=== PATIENT | female | born 1990 ===

== ENCOUNTER 2017-09-02 23:20 | Inpatient (IN) | payer MEDICAID ==
[2017-09-03 00:21] VITALS: BMI 34.2
[2017-09-03] MEDS ORDERED: Sodium Chloride 0.9% 1,000 ML IV SCH (00:30)
[2017-09-03] MEDS ORDERED: ceFAZolin 2 GM in Sodium Chloride 0.9% 100 ML IVPB ONE (00:39)
[2017-09-03] MEDS ORDERED: Oxytocin 30 units/LR 500ML 30 UNITS/500 ML BAG IV SCH (00:45)
[2017-09-03] MEDS ORDERED: Lactated Ringer's 1,000 ML IV SCH (00:45)
[2017-09-03] MEDS ORDERED: ePHEDrine 50 mg/ml Inj ONE (00:54)
[2017-09-03] MEDS ORDERED: Morphine 1 mg/ml preservative-free Inj(Duramorph) ONE (00:55)
[2017-09-03 01:29] LABS: BASO % 0.4 % (0.0-2.0); EOS # 0.1 K/uL (0.0-0.7); EOS % 0.6 % (0.0-4.0); HEMOGLOBIN 10.6 g/dL (12.0-16.0); LYMPH # 1.3 K/uL (1.0-4.3); LYMPH % 11.1 % (20.0-40.0); MEAN CELL VOLUME 82.7 fl (81.0-99.0); MEAN CORPUSCULAR HEMOGLOBIN 27.1 pg (27.0-31.0); MEAN CORPUSCULAR HGB CONC 32.7 g/dL (33.0-37.0); MEAN PLATELET VOLUME 9.2 fl (7.2-11.7); MONO # 0.6 K/uL (0.0-0.8); MONO % 5.4 % (0.0-10.0); NEUT # 9.5 K/uL (1.8-7.0); NEUT % 82.5 % (50.0-75.0); RBC 3.91 Mil/uL (3.80-5.20); RED CELL DISTRIBUTION WIDTH 13.4 % (11.5-14.5); WHITE BLOOD COUNT 11.5 K/uL (4.8-10.8)
[2017-09-03] MEDS ORDERED: Succinylcholine 200 mg/10 ml Inj IV ONE (01:43)
[2017-09-03] MEDS ORDERED: Propofol 10 mg/ml Inj (20 ML) ONE ×2 (01:43→01:58)
[2017-09-03 02:00] LABS: SQUAMOUS EPITHIAL 7 /hpf (0-5); URINE BACTERIA RARE (<OCC); URINE BILIRUBIN NEGATIVE (NEGATIVE); URINE BLOOD NEGATIVE (NEGATIVE); URINE CLARITY CLOUDY (Clear); URINE COLOR AMBER (YELLOW); URINE GLUCOSE (UA) NEG (Normal); URINE HYALINE CAST 0-2 /hpf (0-2); URINE LEUKOCYTE ESTERASE MOD Leu/uL (Negative); URINE PROTEIN 100 mg/dL (NEGATIVE)
[2017-09-03] MEDS ORDERED: Oxycodone/Acetaminophen 5/325 mg Tab PO PRN (02:33)
[2017-09-03] MEDS ORDERED: DiphenhydrAMINE 50 mg/ml Inj IVP PRN (02:43)
[2017-09-03 03:28] LABS: BARBITURATES, UR NEGATIVE (NEGATIVE)
[2017-09-03 03:42] LABS: BENZODIAZEPINES, UR NEGATIVE (NEGATIVE); OPIATES, UR NEGATIVE (NEGATIVE); PHENCYCLIDINE, UR NEGATIVE (NEGATIVE)
[2017-09-03 03:46] VITALS: TEMP 98.1
[2017-09-03] MEDS: Promethazine DM 6.25 mg-15 mg/5 ml Syrup PO PRN ×2 (04:33→21:08)
--- NOTE | 2017-09-03 08:55 | CP.PCM.CON ---
History of Present Illness - History of Present Illness History of Present Illness: Psychiatry consult note CC: "I'm feeling fine." HPI: 27 yo female s/p today, w/ a self reported history of "manic depression" and "paranoid schizophrenia", currently denies acute psychiatric complaints. Denies depression/anxiety/ paranoia/delusions/AH/VH/SI/HI/ albert/ pressured speech/racing thoughts. She denies current treatment w/ psychiatric medications. She states that prior to being she was taking Seroquel, Rock and Remeron; but stopped due to becoming . She denies having any acute psychiatric issues during this current . She denies ideation to harm self, others or her children. PPHx: H/o >10 psychiatric hospitalizations when she was a teenager, no recent hospitalizations. No current outpatient psychiatrist or medications. H/o suicide attempt at age 15. PMHx: No acute medical issues ALL: NKDA SHx: Lives w/ significant other and now two newborns; has two other children who live with their biological father; denies drugs/etoh; +intermittent cig use MSE: A + O x 3, calm, cooperative, mood/affect- neutral, speech normal, good eye contact, psychomotor normal, no AH/VH/SI/HI, I/J good, impulse control good Impression: 27 yo female w/ h/o bipolar disorder vs schizoaffective disorder, does not have any acute psychiatric symptoms at this time. -Patient is psychiatrically stable for discharge -Recommend outpatient psychiatric follow-up and monitoring upon discharge Past Patient History - Infectious Disease Hx of Infectious Diseases: None - Past Social History Smoking Status: Light Smoker < 10 Cigarettes Daily - CARDIAC Hx Cardiac Disorders: Yes Other/Comment: Patient reports she has three holes in her heart. - PULMONARY Hx Respiratory Disorders: No - NEUROLOGICAL Hx Neurological Disorder: No - HEENT Hx HEENT Problems: No - RENAL Hx Chronic Kidney Disease: No - ENDOCRINE/METABOLIC Hx Endocrine Disorders: No - HEMATOLOGICAL/ONCOLOGICAL Hx Blood Disorders: No - INTEGUMENTARY Hx Dermatological Problems: No - MUSCULOSKELETAL/RHEUMATOLOGICAL Hx Musculoskeletal Disorders: No - GASTROINTESTINAL Hx Gastrointestinal Disorders: No - GENITOURINARY/GYNECOLOGICAL Hx Genitourinary Disorders: No - PSYCHIATRIC Hx Psychophysiologic Disorder: No Hx Substance Use: No - SURGICAL HISTORY Hx Surgeries: No - ANESTHESIA Hx Anesthesia: No Meds Allergies/Adverse Reactions: Allergies Allergy/AdvReac Type Severity Reaction Status Date / Time No Known Allergies Allergy Verified 09/02/17 21:06 - Medications Medications: Current Medications Amoxicillin/Clavulanate Potassium (Augmentin 500 Mg-125 Mg Tab) 1 tab PO Q12 DIANE PRN Reason: Protocol Stop: 09/07/17 23:59 Diphenhydramine HCl (Benadryl) 50 mg IVP Q6 PRN PRN Reason: Itching / Pruritus Last Admin: 09/03/17 05:56 Dose: 50 mg Docusate Sodium (Colace) 100 mg PO BID [facility] Oxytocin (Pitocin 20 Units In Lr) 1,000 mls @ 125 mls/hr IV .Q8H [facility] Last Admin: 09/03/17 02:45 Dose: 125 mls/hr Oxytocin (Oxytocin 30 Units/Lr 500ml) 30 units in 500 mls @ 999 mls/hr IV .Q31M [facility] Last Admin: 09/03/17 01:54 Dose: 999 mls/hr Ibuprofen (Motrin Tab) 600 mg PO Q4H PRN PRN Reason: Pain, Mild (1-3) Ketorolac Tromethamine (Toradol) 30 mg IVP Q6 PRN PRN Reason: Pain, moderate (4-7) Last Admin: 09/03/17 04:28 Dose: 30 mg Ondansetron HCl (Zofran Inj) 4 mg IVP Q6 PRN PRN Reason: Nausea/Vomiting Oxycodone/Acetaminophen (Percocet 5/325 Mg Tab) 1 tab PO Q4 PRN PRN Reason: Pain, moderate (4-7) Stop: 09/06/17 02:34 Oxycodone/Acetaminophen (Percocet 5/325 Mg Tab) 2 tab PO Q4 PRN PRN Reason: Pain, severe (8-10) Stop: 09/06/17 02:34 Promethazine HCl/Dextromethorphan (Phenergan Dm Syrup) 5 ml PO Q6 PRN PRN Reason: Cough Last Admin: 09/03/17 04:33 Dose: 5 ml Sennosides (Senokot Tab) 17.2 mg PO [facility] Results - Vital Signs Recent Vital Signs: Last Vital Signs Temp 98.1 F 09/03/17 03:45 Pulse 110 H 09/03/17 03:45 Resp 18 09/03/17 03:45 BP 109/64 09/03/17 03:45 Pulse Ox - Labs Result Diagrams: 09/03/17 00:22 Labs: Laboratory Results - last 24 hr 09/03/17 09/03/17 09/03/17 00:22 00:22 00:22 WBC 11.5 H RBC 3.91 Hgb 10.6 L Hct 32.3 L MCV 82.7 MCH 27.1 MCHC 32.7 L RDW 13.4 Plt Count 196 MPV 9.2 Neut % (Auto) 82.5 H Lymph % (Auto) 11.1 L [place] % (Auto) 5.4 Eos % (Auto) 0.6 Baso % (Auto) 0.4 Neut # (Auto) 9.5 H Lymph # (Auto) 1.3 [place] # (Auto) 0.6 Eos # (Auto) 0.1 Baso # (Auto) 0.0 Urine Color Urine Clarity Urine pH Ur Specific [place] Urine Protein Urine Glucose (UA) Urine Ketones Urine Blood Urine Nitrate Urine Bilirubin Urine Urobilinogen Ur Leukocyte Esterase Urine RBC (Auto) Urine Microscopic WBC Ur Squamous Epith Cells Urine Bacteria Hyaline Casts Urine Opiates Screen Urine Methadone Screen Ur Barbiturates Screen Ur Phencyclidine Scrn Ur Amphetamines Screen U Benzodiazepines Scrn U Oth Cocaine Metabols U Cannabinoids Screen HIV-1 Ab Rapid Screen Non reactive Blood Type O POSITIVE Antibody Screen Negative BBK History Checked No verified bt 09/03/17 09/03/17 00:23 03:00 WBC RBC Hgb Hct MCV MCH MCHC RDW Plt Count MPV Neut % (Auto) Lymph % (Auto) [place] % (Auto) Eos % (Auto) Baso % (Auto) Neut # (Auto) Lymph # (Auto) [place] # (Auto) Eos # (Auto) Baso # (Auto) Urine Color [place] Urine Clarity Cloudy Urine pH 6.0 Ur Specific [place] 1.024 Urine Protein 100 Urine Glucose (UA) Neg Urine Ketones 80 Urine Blood Negative Urine Nitrate Negative Urine Bilirubin Negative Urine Urobilinogen 4.0 H Ur Leukocyte Esterase Mod Urine RBC (Auto) 4 H Urine Microscopic WBC 44 H Ur Squamous Epith Cells 7 H Urine Bacteria Rare Hyaline Casts 0-2 Urine Opiates Screen Negative Urine Methadone Screen Negative Ur Barbiturates Screen Negative Ur Phencyclidine Scrn Negative Ur Amphetamines Screen Negative U Benzodiazepines Scrn Negative U Oth Cocaine Metabols Negative U Cannabinoids Screen Positive H HIV-1 Ab Rapid Screen Blood Type Antibody Screen BBK History Checked
[2017-09-03] MEDS ORDERED: Albuterol-Ipratrop 3 mg / 0.5 (3 ml) UD INH STA ×2 (10:02→12:34)
[2017-09-03] MEDS: Amoxicillin-Clav 500-125 mg Tab PO SCH ×2 (10:03→21:09)
[2017-09-03 11:48] LABS: HEMOGLOBIN 8.2 g/dL (12.0-16.0); MEAN CELL VOLUME 83.3 fl (81.0-99.0); MEAN CORPUSCULAR HEMOGLOBIN 27.4 pg (27.0-31.0); MEAN CORPUSCULAR HGB CONC 32.9 g/dL (33.0-37.0); RBC 2.98 Mil/uL (3.80-5.20); RED CELL DISTRIBUTION WIDTH 13.5 % (11.5-14.5); WHITE BLOOD COUNT 10.5 K/uL (4.8-10.8)
--- NOTE | 2017-09-03 14:31 | RAD ---
HISTORY: SOB, cough COMPARISON: No prior. FINDINGS: LUNGS: No active pulmonary disease. PLEURA: No significant pleural effusion identified, no pneumothorax apparent. CARDIOVASCULAR: Normal. OSSEOUS STRUCTURES: No significant abnormalities. VISUALIZED UPPER ABDOMEN: Normal. OTHER FINDINGS: None. IMPRESSION: No active disease.
--- NOTE | 2017-09-03 15:15 | OBDS ---
DELIVERY PERSONNEL Delivery Doctor: Fitz Ohara MD Military Communications Specialist: Bert Mcgregor Anesthesiologist: Analisa Resident: I.MD eNry MATERNAL INFORMATION Delivery Anesthesia: Spinal; General Estimated Blood Loss (ml): 800 Placenta Cultured: No Maternal Complications: None RN Comments: Pt positive for Marijuana use on admission. Pt had spinal done but once pt was assisted to lie down she started having anxiety and kept asking to sit up. Dr. Ohara then explained to pt the need for general anesthesia. dr. Hauser then placed pt on general anesthesia. Provider Comments: see Operative report LABOR SUMMARY EDC: 10/05/2017 00:00 No. Babies in Womb: 2 Attempted: No Labor Anesthesia: None LABOR INFORMATION Reason for Induction: Not Applicable Onset of Labor: 09/02/2017 21:00 Oxytocin: N/A Group B Beta Strep: Not Done Steroids Given: None Reason Steroids Not Administered: Not Applicable MEMBRANES Membranes Rupture Method: Spontaneous Rupture of Membranes: 09/03/2017 01:52 Length of Rupture (hrs): 0.00 Amniotic Fluid Color: Clear Amniotic Fluid Amount: Moderate STAGES OF LABOR Stage 3 hrs: 0 Stage 3 min: 2 Total Time in Labor hrs: 4 Total Time in Labor min: 54 CSECTION DELIVERY Primary Indication: Multiple Gestation CSection Urgency: Elective CSection Incidence: Primary Labor: Labor Elective: Elective CSection Incision: Lower Uterine Transverse BABY A INFORMATION Delivery Date/Time: 09/03/2017 01:52 Method of Delivery: Born in Route : No : N/A Forceps: N/A Vacuum Extraction: N/A Shoulder Dystocia : No SHOULDER DYSTOCIA BABY A Infant Delivery Date/Time: 09/03/2017 01:52 PRESENTATION/POSITION BABY A Presentation: Cephalic Cephalic Presentation: Vertex Breech Presentation: N/A PLACENTA INFORMATION BABY A Placenta Delivery Time : 09/03/2017 01:54 Placenta Method of Delivery: Spontaneous Placenta Status: Delivered SCORES BABY A Heart Rate 1 min: >100 bpm Resp Effort 1 min: Good Cry Reflex Irritability 1 min: Grimace Muscle Tone 1 min: Some Flexion of Extremities Color 1 min: Body Phenix, Extremities Blue Resuscitation Effort 1 min: Tactile Stimulation; Oxygen SCORE 1 MIN: 7 Heart Rate 5 min: >100 bpm Resp Effort 5 min: Good Cry Reflex Irritability 5 min: Cough or Sneeze or Pulls Away Muscle Tone 5 min: Active Motion Color 5 min: Body Phenix, Extremities Blue Resuscitation Effort 5 min: Oxygen SCORE 5 MIN: 9 INFANT INFORMATION BABY A Gestational Age at Delivery: 36.0 Gestational Status: Term Outcome : Liveborn Condition : Stable Sex: Female IDENTIFICATION/MEDS BABY A ID Band Number: [id number] ID Band Location: Left Leg; Left Arm WEIGHT/LENGTH BABY A Birthweight (gms): 2090 Weight (lb): 4 Weight (oz): 10 CORD INFORMATION BABY A No. Cord Vessels: 3 Nuchal Cord : N/A Cord Blood Taken: Yes Suction: Mouth; Nose BABY B INFORMATION Delivery Date/Time: 09/03/2017 01:53 Method of Delivery : Born in Route : No : N/A Forceps : N/A Vacuum Extraction: N/A Shoulder Dystocia : No SHOULDER DYSTOCIA BABY B Delivery Date/Time: 09/03/2017 01:53 PRESENTATION/POSITION BABY B Presentation : Breech Cephalic Position : N/A ROM/PLACENTA INFO BABY B Rupture of Membranes: 09/03/2017 01:52 Length of Rupture (hrs): 0.02 Placenta Delivery Time : 09/03/2017 01:54 Placenta Method of Delivery: Spontaneous Placental Status : Delivered SCORES BABY B Heart Rate 1 min: Slow, Below 100 bpm Resp Effort 1 min: Slow, Irregular Reflex Irritability 1 min: Grimace Muscle Tone 1 min: Active Motion Color 1 min: Body Phenix, Extremities Blue Resuscitation Effort 1 min: Tactile Stimulation SCORE 1 MIN: 6 Heart Rate 5 min: >100 bpm Resp Effort 5 min: Good Cry Reflex Irritability 5 min: Cough or Sneeze or Pulls Away Muscle Tone 5 min: Active Motion Color 5 min: Body Phenix, Extremities Blue SCORE 5 MIN: 9 INFANT INFORMATION BABY B Gestational Age at Delivery: 36.0 Gestational Status : Term Infant Outcome : Liveborn Condition : Stable Infant Sex : Female IDENTIFICATION/MEDS BABY B ID Band Number : [id number] ID Band Location : Left Leg; Left Arm WEIGHT/LENGTH BABY B Birthweight (gms): 2310 Weight (lb) : 5 Weight (oz): 1 CORD INFORMATION BABY B No. Cord Vessels : 3 Nuchal Cord : N/A Cord Blood Taken : Yes Infant Suction : Mouth; Nose
[2017-09-03] MEDS: Albuterol-Ipratrop 3 mg / 0.5 (3 ml) UD INH SCH ×2 (16:36→19:59)
[2017-09-03 17:43] LABS: RAPID PLASMA REAGIN NONREACTIVE (NONREACTIVE)
[2017-09-03] MEDS: Oxycodone/Acetaminophen 5/325 mg Tab PO PRN (21:09)
[2017-09-03] MEDS ORDERED: Benzocaine/Menthol (Cepacol) Lozenge PO PRN (22:21)
[2017-09-04] MEDS: Albuterol-Ipratrop 3 mg / 0.5 (3 ml) UD INH SCH ×5 (03:02→19:56)
[2017-09-04] MEDS: Oxycodone/Acetaminophen 5/325 mg Tab PO PRN ×4 (03:48→22:10)
[2017-09-04] MEDS: Promethazine DM 6.25 mg-15 mg/5 ml Syrup PO PRN ×3 (07:38→22:09)
--- NOTE | 2017-09-04 08:25 | OP ---
PROCEDURE DATE: 09/03/2017 PREOPERATIVE DIAGN/SES: Twin gestation 36 weeks, active labor, poor care, vertex and breech presentation, and history of substance abuse. POSTOPERATIVE DIAGNOSES: Twin gestation 36 weeks, active labor, poor care, vertex and breech presentation, and history of substance abuse. OPERATION PERFORMED: Primary low flap transverse section by Pfannenstiel skin incision. SURGEON: Germania Ohara MD MENTAL MEASUREMENTS TEACHER: Family practice resident Weston Gabriel MD TYPE OF ANESTHESIA: Spinal. ANESTHESIA ADMINISTERED BY: Chano Hauser MD ESTIMATED BLOOD LOSS: 800 mL. URINE OUTPUT: Purdy catheter put out approximately 300 mL of clear urine. INTRAVENOUS FLUID INTAKE: The patient received approximately 1200 mL of D5 LR intraoperatively. OPERATIVE FINDINGS: Baby A was vertex presentation, Apgars 9 and 9, male infant, weighing 4 pounds 10 ounces. Baby B was breech, weighing 2310 grams, Apgars 6 and 9, male . DESCRIPTION OF PROCEDURE: After informed consent was obtained, the patient was taken to the operating room where she was given spinal anesthesia. She was then prepped and draped in the normal sterile fashion. On the table, the patient had a panic attack, so anesthesia proceeded to general intubation. A Pfannenstiel skin incision was then made with a scalpel and carried down to the underlying layer of fascia. The fascia was nicked in the midline. The fascial incision was then extended laterally with the curved Portillo scissors. The superior aspect of the fascial incision was then grasped with Cintia clamps, elevated up, and the rectus muscles were dissected off using both sharp and blunt dissection. Attention was then turned to the inferior aspect of the fascial incision, which in similar fashion, was grasped with Cintia clamps, elevated up, and the rectus muscles were dissected off using both sharp and blunt dissection. The rectus muscles were then in the midline. The peritoneum identified and entered sharply with the Metzenbaum scissors. The peritoneal incision was then extended superiorly and inferiorly with good visualization of the bladder. The bladder blade was then inserted. The vesicouterine peritoneum identified and entered sharply with the Metzenbaum scissors. The incision was then extended laterally, the bladder flap was created digitally. A low transverse incision was then made with a scalpel. The uterine incision was then extended laterally with the bandage scissors. Baby A was then delivered from the vertex presentation. Cord was clamped with a Isabel clamp and the baby was handed off to awaiting pediatricians. Baby B was then delivered from the breech presentation. Clamped with Cintia clamp. Baby was handed off awaiting pediatricians. The placenta was then removed manually. The uterus was exteriorized and cleared of all clots and debris. The uterine incision was then repaired with 0 Vicryl in a running locked fashion. Same suture was used to obtain excellent hemostasis. The uterus was then returned to the abdomen. The gutters were then cleared of all clots and debris. The abdomen was then copiously irrigated. The irrigant was removed with the suction device. The incision was then reexamined and hemostatic. The peritoneum was then closed with 2-0 Vicryl in a running fashion. The muscles were reapproximated with 0 Vicryl in an interrupted fashion. The fascia was closed with 0 Vicryl in a running fashion. The skin was closed with a Austin needle. All sponge, lap, needle, and instrument counts were correct x2 and the patient was taken to the recovery room in awake and stable condition. Germania Ohara MD
[2017-09-04] MEDS: Amoxicillin-Clav 500-125 mg Tab PO SCH ×2 (08:49→22:09)
[2017-09-05] MEDS: Albuterol-Ipratrop 3 mg / 0.5 (3 ml) UD INH SCH ×3 (02:27→13:04)
[2017-09-05] MEDS: Oxycodone/Acetaminophen 5/325 mg Tab PO PRN ×3 (09:00→20:39)
[2017-09-05] MEDS: Amoxicillin-Clav 500-125 mg Tab PO SCH ×2 (09:05→20:49)
--- NOTE | 2017-09-05 10:45 | OBPPN ---
Datetime: 09/05/2017 06:56 PP Pain Prov: Within normal limits PP Nausea Prov: Denies PP Flatus Prov: Yes PP BM Prov: No PP Breasts Prov: Not Done PP Heart Prov: Normal PP Lungs Prov: Normal PP Abdomen/Uterus Prov: Normal PP Lochia Prov: Normal PP Vulva/Perineum Prov: Not Done PP CVA Tenderness Prov: Not Done PP Extremities Prov: Normal PP C/S Incision Prov: Normal PP Impression Prov: Normal progression PP Plan Prov: Continue present management PP Progress Note Prov: 27 yo POD 2 s/p of twin gestation on 09/03/17 at 01:52. Pt w as seen and examined at bedside this am; yesterday evening was agitated and wanted to leave resulted in code duke- documented in RN notes. Her pain is appropriately controlled with medication. She is a mbulating around the room, voiding freely. She is tolerating PO intake, newborns. Has b een passing gas. Lochia less than menses. Denies dizziness, chest pain, nausea, vomiting, and calf pa in. Gen: awake, alert, no acute distress Resp: coarse upper airway sounds, no audible wheeze CV: RRR, S1S2 Abd: + bs, soft, mildly and appropriately tender, firm fundus at umbilical level, incision clean, no erythema Ext: no edema, no calf tenderness Neuro/psych: AAOx3, no gross focal deficit, fluctuating mood. A/P: 27 yo POD 2 s/p of twin gestation on 09/03 at 01:52. Pt has psychiatric hx, was i nitially cleared by psychiatry, but psych re-consulted after pt was markedly agitated yesterday, will be seen again today. Was seen by social work- not cleared yet. Has hx of cardiac murmur, echo pendin g. Continue with pain control, encourage /pumping and ambulation. Continue current post- management. Anticipated discharge 09/06/17, pending social work and psychiatry clearance. [id number] Addendum by Dr. Edwards: I have evaluated the patient independently and I agree with the above Vital Signs Provider PP: Reviewed
--- NOTE | 2017-09-05 14:21 | CP.PCM.CON ---
History of Present Illness - History of Present Illness History of Present Illness: Psychiatry consult follow-up note CC: "I got upset yesterday." HPI: 27 yo female s/p yesterday, became acutely agitated when DCP&P came yesterday to discuss her children. She acknowledges that she became upset with DCP&P. She is currently calm and cooperative with interview. She continues to deny acute psychiatric complaints. Denies depression/anxiety/ paranoia/delusions/AH/VH/SI/HI/ albert/ pressured speech/racing thoughts. She states that she used marijuana during her because she had pain and did not think it would hurt her child because she used marijuana in her other pregnancies. She reports that she does not have contact with her other children because her ex accused her of abandonment. She also reports that she used meth amphetamine but stopped prior to being with her newborns. She reports that she is unable to comply with whatever requirements DCP&P would make for her. She denies ideation to harm self, others or her children. She is not interested in treatment with psychotropic medications or psychiatric hospitalization at this time. PPHx: H/o >10 psychiatric hospitalizations when she was a teenager, no recent hospitalizations. No current outpatient psychiatrist or medications. H/o suicide attempt at age 15. PMHx: No acute medical issues ALL: NKDA SHx: Lives w/ significant other and now two newborns; has two other children who live with their biological father; +Marijuana use; denies etoh; + intermittent cig use; h/o meth use MSE: A + O x 3, calm, cooperative, mood/affect- neutral, speech normal, good eye contact, psychomotor normal, no AH/VH/SI/HI, POOR I/J Impression: 27 yo female w/ h/o bipolar disorder vs schizoaffective disorder, denies acute psychiatric complaints, does not want psychiatric medications or psychiatric hospitalization. Patient does not meet criteria for involuntary psychiatric commitment at this time. Although patient is not an acute danger to herself or her children while in a supervised environment; the patient exhibits very poor insight and judgment into her past behaviors, such as marijuana use and poor care. She also does not have a concrete plan on how she will be able to financially and practically provide for her children. She also reports that she has no intention to follow-up with DCP&P recommendations, such as routine home visits or drug testing. At this time, it seems that the patient is psychiatrically safe to be around her children while in the hospital, but due to her very poor judgment will not likely provide a safe and stable environment for her children upon discharge. Recommend that the patient have outpatient psychiatric follow-up and treatment and routine drug screen monitoring given significant history of substance abuse. Agree w/ DCP&P involvement for the safety of the children. Past Patient History - Infectious Disease Hx of Infectious Diseases: None - Past Social History Smoking Status: Light Smoker < 10 Cigarettes Daily - CARDIAC Hx Cardiac Disorders: Yes Other/Comment: Patient reports she has three holes in her heart. - PULMONARY Hx Respiratory Disorders: No - NEUROLOGICAL Hx Neurological Disorder: No - HEENT Hx HEENT Problems: No - RENAL Hx Chronic Kidney Disease: No - ENDOCRINE/METABOLIC Hx Endocrine Disorders: No - HEMATOLOGICAL/ONCOLOGICAL Hx Blood Disorders: No - INTEGUMENTARY Hx Dermatological Problems: No - MUSCULOSKELETAL/RHEUMATOLOGICAL Hx Musculoskeletal Disorders: No - GASTROINTESTINAL Hx Gastrointestinal Disorders: No - GENITOURINARY/GYNECOLOGICAL Hx Genitourinary Disorders: No - PSYCHIATRIC Hx Psychophysiologic Disorder: No Hx Substance Use: No - SURGICAL HISTORY Hx Surgeries: No - ANESTHESIA Hx Anesthesia: No Meds Allergies/Adverse Reactions: Allergies Allergy/AdvReac Type Severity Reaction Status Date / Time No Known Allergies Allergy Verified 09/02/17 21:06 - Medications Medications: Current Medications Albuterol/Ipratropium (Duoneb 3 Mg/0.5 Mg (3 Ml) Ud) 3 ml INH RQ6 DIANE Last Admin: 09/05/17 13:04 Dose: 3 ml Amoxicillin/Clavulanate Potassium (Augmentin 500 Mg-125 Mg Tab) 1 tab PO Q12 DIANE PRN Reason: Protocol Stop: 09/07/17 23:59 Last Admin: 09/05/17 09:05 Dose: 1 tab Benzocaine/Menthol (Cepacol Sore Throat) 1 seda PO Q3 PRN PRN Reason: Sore Throat Last Admin: 09/04/17 07:38 Dose: 1 seda Diphenhydramine HCl (Benadryl) 50 mg IVP Q6 PRN PRN Reason: Itching / Pruritus Last Admin: 09/03/17 05:56 Dose: 50 mg Docusate Sodium (Colace) 100 mg PO BID DIANE Last Admin: 09/05/17 09:02 Dose: 100 mg Ibuprofen (Motrin Tab) 600 mg PO Q4H PRN PRN Reason: Pain, Mild (1-3) Last Admin: 09/05/17 11:08 Dose: 600 mg Ketorolac Tromethamine (Toradol) 30 mg IVP Q6 PRN PRN Reason: Pain, moderate (4-7) Last Admin: 09/03/17 15:25 Dose: 30 mg Lorazepam (Ativan) 1 mg PO TID PRN PRN Reason: Agitation Ondansetron HCl (Zofran Inj) 4 mg IVP Q6 PRN PRN Reason: Nausea/Vomiting Oxycodone/Acetaminophen (Percocet 5/325 Mg Tab) 1 tab PO Q4 PRN PRN Reason: Pain, moderate (4-7) Stop: 09/06/17 02:34 Last Admin: 09/05/17 09:00 Dose: 1 tab Oxycodone/Acetaminophen (Percocet 5/325 Mg Tab) 2 tab PO Q4 PRN PRN Reason: Pain, severe (8-10) Stop: 09/06/17 02:34 Promethazine HCl/Dextromethorphan (Phenergan Dm Syrup) 5 ml PO Q6 PRN PRN Reason: Cough Last Admin: 09/04/17 22:09 Dose: 5 ml Sennosides (Senokot Tab) 17.2 mg PO HS [facility] Last Admin: 09/04/17 22:20 Dose: 17.2 mg Results - Vital Signs Recent Vital Signs: Last Vital Signs Temp 98.1 F 09/03/17 03:45 Pulse 110 H 09/03/17 03:45 Resp 18 09/03/17 03:45 BP 109/64 09/03/17 03:45 Pulse Ox - Labs Result Diagrams: 09/03/17 11:10
--- NOTE | 2017-09-05 18:12 | CARD ---
APPROVED REPORT EXAM: Two-dimensional and M-mode echocardiogram with Doppler and color Doppler. Other Information Quality : GoodRhythm : NSR INDICATION Murmur 2D DIMENSIONS IVSd0.87 (0.7-1.1cm)LVDd4.52 (3.9-5.9cm) LVOT Diameter1.78 (1.8-2.4cm)PWd0.88 (0.7-1.1cm) IVSs0.89 (0.8-1.2cm)LVDs3.40 (2.5-4.0cm) FS (%) 24.8 %PWs1.21 (0.8-1.2cm) M-Mode DIMENSIONS Left Atrium (MM)4.00 (2.5-4.0cm)IVSd0.76 (0.7-1.1cm) Aortic Root2.50 (2.2-3.7cm)LVDd4.79 (4.0-5.6cm) Aortic Cusp Exc.1.53 (1.5-2.0cm)PWd0.82 (0.7-1.1cm) IVSs0.97 cmFS (%) 29 % LVDs3.41 (2.0-3.8cm)PWs1.18 cm Mitral Valve MV E Sqijxhdz636.7cm/sMV DECEL [id number] A Nouhzkne10.8cm/s MV CFK71vuF/A ratio2.6MVA (PHT)3.10cm2 TDI Lateral E' Peak V23.66cm/sMedial E' Peak V20.37cm/sE/Lateral E'4.9 E/Medial E'5.7 Pulmonary Valve PV Peak Mmdopuaw813.9cm/s Tricuspid Valve TR Peak Uturcgyd779nz/sRAP [id number] Peak Gr.25mmHg [id number] LEFT VENTRICLE The left ventricle is normal size. There is normal left ventricular wall thickness. The left ventricular function is normal. The left ventricular ejection fraction is within the normal range. There is normal LV segmental wall motion. The left ventricular diastolic function is normal. RIGHT VENTRICLE The right ventricle is normal size. There is normal right ventricular wall thickness. The right ventricular systolic function is normal. ATRIA The left atrium size is normal. The right atrium size is normal. AORTIC VALVE The aortic valve is not well visualized. No aortic regurgitation is present. There is no aortic valvular stenosis. MITRAL VALVE The mitral valve is not well visualized. There is no mitral valve stenosis. There is no mitral valve regurgitation noted. TRICUSPID VALVE The tricuspid valve is normal in structure. There is trace tricuspid regurgitation. PULMONIC VALVE The pulmonary valve is normal in structure. There is no pulmonic valvular regurgitation. GREAT VESSELS The aortic root is normal in size. The IVC is normal in size and collapses >50% with inspiration. PERICARDIAL EFFUSION The pericardium appears normal. <Conclusion> The left ventricle is normal size. There is normal left ventricular wall thickness. The left ventricular function is normal. The left ventricular ejection fraction is within the normal range. There is normal LV segmental wall motion. The left ventricular diastolic function is normal.
[2017-09-06] MEDS: Promethazine DM 6.25 mg-15 mg/5 ml Syrup PO PRN (05:49)
[2017-09-06] MEDS ORDERED: Oxycodone/Acetaminophen 5/325 mg Tab PO PRN (05:53)
[2017-09-06] MEDS: Albuterol-Ipratrop 3 mg / 0.5 (3 ml) UD INH SCH (06:05)
[2017-09-06] MEDS ORDERED: Pneumococcal 23-Valent Vaccine IM ONE (09:00)
[2017-09-06] MEDS ORDERED: Tdap Vaccine 0.5 ml Vial (10-64 yrs) IM ONE (09:00)
[2017-09-06] MEDS: Amoxicillin-Clav 500-125 mg Tab PO SCH (09:24)
--- NOTE | 2017-09-06 12:11 | OBPPN ---
Datetime: 09/06/2017 07:20 PP Pain Prov: Within normal limits PP Nausea Prov: Denies PP Flatus Prov: Yes PP BM Prov: Yes PP Breasts Prov: Not Done PP Heart Prov: Normal PP Lungs Prov: Abnormal PP Abdomen/Uterus Prov: Normal PP Lochia Prov: Normal PP Vulva/Perineum Prov: Not Done PP CVA Tenderness Prov: Not Done PP Extremities Prov: Normal PP C/S Incision Prov: Normal PP Impression Prov: Normal progression PP Plan Prov: Continue present management PP Progress Note Prov: 27 yo POD 3 s/p of twin gestation on 09/03/17 at 01:52. Pt w as seen and examined at bedside this am; no acute events or issues overnight. Her pain is appropriate ly controlled with medication. She is ambulating around the room, voiding freely. She is tolerating PO intake, and is newborns. Has had BM. Lochia less than menses. Denies dizziness, ches t pain, nausea, vomiting, and calf pain. Was seen by psychiatry yesterday. As per psychiatry note: Although patient is not an acute danger to herself or her children while in a supervised environment; the patient exhibits very poor insight and judgment into her past behaviors, such as marijuana use and poor care. She also does no t have a concrete plan on how she will be able to financially and practically provide for her childre n. She also reports that she has no intention to follow-up with DCP_P recommendations, such as rout ine home visits or drug testing. At this time, it seems that the patient is psychiatrically safe to b e around her children while in the hospital, but due to her very poor judgment will not likely provid e a safe and stable environment for her children upon discharge. Recommend that the patient have outp atient psychiatric follow-up and treatment and routine drug screen monitoring given significant histo ry of substance abuse. Agree w/ DCP_P involvement for the safety of the children. Was seen by social work; as per social work note: [facility] lining caser Gilberto (P: [phone] / cell: [phone]) reported that pt's baby girls cannot dc home with pt tomorrow and need to be held unti l Friday. Alexia confirmed pt is able to visit babies over the weekend. [place] [employer] Technician Pauline and this worker met with pt at bedside to inform above. Pt was crying and SW provided supportive counseling. P t will dc home with friend Miguel. Pt verbalized she cannot afford to travel to and from [facility] from [facility]. Pauline approved cab vouchers for pt to travel to [facility] over the weekend. SW provided vouchers. DYFS will meet with pt on Friday at [facility]. SW made pt aware of above and pt confirmed she will be at [facility] at 8:00 am Friday. Will follow. PE: Gen: awake, alert, no acute distress Resp: coarse upper airway sounds, no audible wheeze, normal effort CV: RRR, S1S2 Abd: + bs, soft, mildly and appropriately tender, firm fundus at umbilical level, incision clean, no erythema Ext: no edema, no calf tenderness Neuro/psych: AAOx3, no gross focal deficit A/P: 27 yo POD 2 s/p of twin gestation on 09/03 at 01:52. Pt has psychiatric hx and wa s evaluated by social work and psychiatry, recommendations documented above. Has hx of murmurs- echo complete, wnl. CXR wnl. Continue with pain control. Encourage /pumping and ambulation. Continue current post- management. TDAP and PVC vaccines today. [id number] Addendum: I saw and examined patient. Patient cleared by psychiatry and social work for discharge. Discussed plan with patient and all patient questions answered. Patient will follow up in 1 week in clinic [facility] check[facility] Vital Sign[facility] Provider PP: Reviewed; Within Normal Limits
--- NOTE | 2017-09-06 12:13 | OBDCSUM ---
Datetime: 09/06/2017 12:11 Discharged to, Provider: Home Follow up at, Provider: Clinic Disch Instr Activity: Normal activity Disch Instr Diet: Regular Discharge Instructions, Provider: Routine instructions given Discharge Diagnosis, Provider: Labor; Delivery Discharge Time: 09/06/2017 12:11 Follow up in weeks, Provider: 1 week Disch Referrals: None Contraception discussed, Prov: Yes Disch Activity Restrictions: No lifting; No sexual activity; Nothing in vagina - [place], tampon s, douche Discharge Diagnosis Prov Other: Twin gestation Contraception after Delivery: Undecided
[2017-09-06 20:30] VITALS: BP 131/84; PULSE 92; RESP 20; O2SAT 97
== END 2017-09-06 15:30 | disposition home or self-care (01) | DRG 650 ==
LOC: H.EROB2 23:20 → H.L&D 09-03 00:42 → H.OB/GYN 09-03 11:23
PROVIDERS: ADMIT Obstetrics & Gynecology Gynecology; ATTEND Obstetrics & Gynecology Gynecology
PROC: 10D00Z1 Extraction of Products of Conception, Low, Open Approach (ICD-10-PCS; principal; 2017-09-03)
PROC: 4A1HXCZ Monitoring of Products of Conception, Cardiac Rate, External Approach (ICD-10-PCS; 2017-09-03)
PROC: 3E0234Z Introduction of Serum, Toxoid and Vaccine into Muscle, Percutaneous Approach (ICD-10-PCS; 2017-09-03)
DX: O60.14X1 Preterm labor third trimester with preterm delivery third trimester, fetus 1 (principal); O99.324 Drug use complicating childbirth; O60.14X2 Preterm labor third trimester with preterm delivery third trimester, fetus 2; O30.003 Twin pregnancy, unspecified number of placenta and unspecified number of amniotic sacs, third trimester; Z3A.36 36 weeks gestation of pregnancy; Z37.2 Twins, both liveborn; F12.90 Cannabis use, unspecified, uncomplicated; O66.0 Obstructed labor due to shoulder dystocia; Z23 Encounter for immunization

== ENCOUNTER 2017-12-17 15:25 | Emergency (ER) | payer SELFPAY ==
[2017-12-17 15:25] VITALS: BMI 32.5
[2017-12-17 15:30] VITALS: BP 117/65; PULSE 88; RESP 16; TEMP 99.1; O2SAT 98
--- NOTE | 2017-12-17 17:01 | ED PDOC ---
HPI: Psych/Substance Abuse Time Seen by Provider: 12/17/17 15:45 Chief Complaint (Nursing): Anxiety Chief Complaint (Provider): anxiety History Per: Patient History/Exam Limitations: no limitations Additional Complaint(s): Maria Teresa Kong, a 27 year old female with past medical history of depression and anxiety, presents to the emergency department requesting to be put on medication. She states that she had been taking medication but stopped because she was . Currently the patient is 3 months , and denies any physical complaints, anxiety, homicidal or suicidal ideation. She denies any depression or anxiety, no thoughts of hurting baby. Patient does not know what medication she was on prior to other than seroquel. No further medical complaints. PMD: None provided Past Medical History Reviewed: Historical Data, Nursing Documentation, Vital Signs Vital Signs: Last Vital Signs Temp 99.1 F 12/17/17 15:30 Pulse 88 12/17/17 15:30 Resp 16 12/17/17 15:30 BP 117/65 12/17/17 15:30 Pulse Ox 98 12/17/17 15:30 - Medical History PMH: Anxiety, Depression, Kidney Stones, Seizures Denies: Diabetes, Hepatitis, HIV, HTN, Chronic Kidney Disease, Sexually Transmitted Disease - Surgical History Surgical History: No Surg Hx - Family History Family History: States: Unknown Family Hx - Home Medications Home Medications: Ambulatory Orders Medication Instructions Recorded Ferrous Sulfate 325 mg PO DAILY #30 tablet 09/06/17 Ibuprofen [Motrin Tab] 600 mg PO Q4 PRN #20 tab 09/06/17 Vit No.126/Iron/Folic 1 tab PO DAILY #0 09/06/17 [Classic Tablet] Sennosides A and B [Senokot Tab] 17.2 mg PO HS #14 tab 09/06/17 oxyCODONE/Acetaminophen [Percocet 1 tab PO Q6 #20 tab 09/06/17 5/325 mg Tab] Cephalexin [Keflex] 500 mg PO QID #28 capsule 09/12/17 - Allergies Allergies/Adverse Reactions: Allergies Allergy/AdvReac Type Severity Reaction Status Date / Time No Known Allergies Allergy Verified 12/17/17 15:32 Review of Systems ROS Statement: Except As Marked, All Systems Reviewed And Found Negative Psych: Negative for: Anxiety, Suicidal ideation Physical Exam - Reviewed Nursing Documentation Reviewed: Yes Vital Signs Reviewed: Yes - Physical Exam Appears: Positive for: Non-toxic, No Acute Distress Head Exam: Positive for: ATRAUMATIC, NORMAL INSPECTION, NORMOCEPHALIC Skin: Positive for: Normal Color, Warm, DRY Eye Exam: Positive for: EOMI, Normal appearance, PERRL ENT: Positive for: Normal ENT Inspection Neck: Positive for: Normal, Painless ROM Cardiovascular/Chest: Positive for: Regular Rate, Rhythm Respiratory: Positive for: CNT, Normal Breath Sounds Gastrointestinal/Abdominal: Positive for: Normal Exam, Soft Back: Positive for: Normal Inspection Extremity: Positive for: Normal ROM (upper and lower) Neurologic/Psych: Positive for: Alert, Oriented - ECG O2 Sat by Pulse Oximetry: 98 (RA) Pulse Ox Interpretation: Normal Medical Decision Making Medical Decision Making: Time: 15:45 Initial Impression: requests medication Initial Plan: --Crisis eval Crisis consulted, Pt given Appointment at [facility] to establish outpt treatment Pt agrees with plan to leave ED at this time and go to [facility] Scribe Attestation: Documented by Cally Islas, acting as a scribe for SOCORRO Chen. Provider Scribe Attestation: All medical record entries made by the Scribe were at my direction and personally dictated by me. I have reviewed the chart and agree that the record accurately reflects my personal performance of the history, physical exam, medical decision making, and the department course for this patient. I have also personally directed, reviewed, and agree with the discharge instructions and disposition. Disposition - Clinical Impression Clinical Impression: Depression with anxiety - Patient ED Disposition Is Patient to be Admitted: No - Disposition Disposition: Routine/Home Disposition Time: 17:20 Condition: STABLE Instructions: Anxiety, Adult (DC) Forms: [employer] (Turkish)
== END 2017-12-17 17:05 | disposition home or self-care (01) ==
LOC: H.ER 15:25
DX: F41.8 Other specified anxiety disorders (principal)